=== PATIENT | female | born 1995 | race Hispanic/Latino ===

== ENCOUNTER 2016-03-08 07:08 | Emergency (ER) | payer OTHER ==
[~2016-03-08] VITALS: Ht 165.1 cm; Wt 60.7 kg
[~2016-03-08 07:08] MED LIST: CIPRO500 MG PO; FLAGYL500 MG PO; MACROBID100 MG PO; NAPROSYN500 MG PO; ZOFRAN ODT4 MG PO; ZOFRAN4 MG PO
[2016-03-08 08:05] VITALS: BP 108/69
== END 2016-03-08 08:06 | disposition home or self-care (01) ==
LOC: EME 07:08
PROC: 0HQFXZZ Repair Right Hand Skin, External Approach (ICD-10-PCS; principal; 2016-03-08)
DX: S61.216A Laceration without foreign body of right little finger without damage to nail, initial encounter (principal); W26.8XXA Contact with other sharp object(s), not elsewhere classified, initial encounter
CPT/HCPCS: 99281; 99283